=== PATIENT | female | born 1980 | race Caucasian/White ===

== ENCOUNTER 2024-07-22 11:07 | Emergency (ER) | payer MEDICAID ==
[~2024-07-22] VITALS: Ht 160 cm; Wt 86.1 kg
--- NOTE | 2024-07-22 11:28 | ED.PDOC ---
General HPI Comments 43 y.o female with PMHx of asthma, presents to the ED for a chief complaint of right sided flank pain associated with nausea and vomiting that started one day ago and has progressively worsened this morning. Patient reports pain worsens with deep inspiration and movement, has no alleviating factors and denies any recent trauma to pain site or falls. Pain is non radiating and rating a 6/10 on the pain scale. Patient took a Zofran 2 hours ago, states no relief. At this time, she denies any dysuria, hematuria, fever, chills, diarrhea. Patient mentions occasional use of tobacco via vaping, alcohol and marijuana. Chief Complaint: Flank Pain Time Seen by MD: 11:20 Reviewed notes: Nurses Notes, Medications, Allergies Allergies: Coded Allergies: NO KNOWN ALLERGIES (Unverified , 07/22/24) Home Meds Active Scripts Ondansetron Odt 4MG Tab (ZOFRAN PO) 4 Mg Tb, 4 MG PO TID PRN, #30 TAB prn nausea/vomiting ODT TAB-DISSOLVE IN MOUTH, THEN SWALLOW Prov:MARYCARMEN QUIROS MD 07/22/24 Methocarbamol (Methocarbamol) 500 Mg Tab, 1000 MG PO Q8HP PRN, #30 TAB prn muscle spasm Prov:MARYCARMEN QUIROS MD 07/22/24 Ibuprofen Micronized (Ibuprofen) 800 Mg Tab, 800 MG PO Q8HP PRN, #30 TAB prn pain, take with food Prov:MARYCARMEN QUIROS MD 07/22/24 Information Source: Patient Mode of Arrival: Ambulatory Severity: Moderate Timing: Days (1) Duration: Since onset Onset: Spontaneous Symptoms: None History of: None Location: (R) Flank Modifying factors: None associated signs and symptoms: Nausea, Vomiting Past Medical History PAST MEDICAL HISTORY: Asthma Surgical History: (3), 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 GENERAL History LMP 2 weeks ago Family History Family History: Reviewed,noncontributory to illness Social History Smoker: Cigarettes Alcohol: Occasionally Drugs: Marijuana Lives In: Home Constitutional: denies: chills, diaphoresis, fatigue, fever, malaise, sweats, weakness, others EENTM: denies: blurred vision, double vision, ear bleeding, ear discharge, ear drainage, ear pain, ear ringing, eye pain, eye redness, hearing loss, mouth pain, mouth swelling, nasal discharge, nose bleeding, nose congestion, nose pain, photophobia, tearing, throat pain, throat swelling, voice changes, others Respiratory: denies: cough, hemoptysis, orthopnea, SOB at rest, shortness of breath, SOB with excertion, stridor, wheezing, others Cardiovascular: denies: chest pain, dizzy spells, diaphoresis, Dyspnea on exertion, edema, irregular heart beat, left arm pain, lightheadedness, palpitations, PND, syncope, others Gastrointestinal: reports: nausea, vomiting; denies: abdomen distended, abdominal pain, blood streaked bowels, constipated, diarrhea, dysphagia, difficulty swallowing, hematemesis, melena, poor appetite, poor fluid intake, rectal bleeding, rectal pain, others Genitourinary: reports: flank pain; denies: abnormal vagina bleeding, burning, dyspareunia, dysuria, frequency, hematuria, incontinence, pain, , vagina discharge, urgency, others Neurological: denies: dizziness, fainting, headache, left sided numbness, left sided weakness, numbness, paresthesia, pre-existing deficit, right sided numbness, right sided weakness, seizure, speech problems, tingling, tremors, weakness, others Musculoskeletal: denies: back pain, gout, joint pain, joint swelling, muscle pain, muscle stiffness, neck pain, others Integumetry: denies: bruises, change in color, change in hair/nails, dryness, laceration, lesions, lumps, rash, wounds, others Allergic/Immunocompromised: denies: Difficulty Healing, Frequent Infections, Hives, Itching, others Hematologic/Lymphatic: denies: anemia, blood clots, easy bleeding, easy bruising, swollen glands, others Psychiatric: denies: anxiety, bipolar disorder, depression, hopeless, panic disorder, schizophrenia, sleepless, suicidal, others All Other Systems: Reviewed and Negative Physical Exam General Appearance: Mild Distress, Obese HEENT: Other (Pupils and face symmetric. Moist mucous membranes.) Neck: Full Range of Motion, Normal Inspection Respiratory: Lungs Clear, No Accessory Muscle Use, No Respiratory Distress, Normal Breath Sounds Cardiovascular: No Edema, No JVD, Regular Rate/Rhythm Breast Exam: Deferred Gastrointestinal: Non Tender, Soft Genitalia: Deferred Pelvic: Deferred Rectal: Deferred Extremities: Normal inspection, Normal range of motion, No pedal edema Musculoskeletal : Extremity Location: Back (Right mid back and upper flank soft tissue/muscle tenderness) Apperance: Normal Neurologic: Alert (Oriented x4), Normal Affect, Normal Mood, Other (Ambulatory) Cerebellar Function: NOT DONE Reflexes: NOT DONE Skin: Dry, Normal Color, Warm Lymphatic: NOT DONE Was a procedure done? Was a procedure done?: No Differential Diagnosis Kidney stone (Female): Bowel obstruction, Cholelithiasis, Musculoskeletal pain, Renal failure, Strain Urinary Problem (Female): Impaction, Pyelonephritis, Urolithiasis, UTI Other Differential Diagnosis Viral syndrome, among others X-Ray, Labs, Meds, VS Vital Signs Date Time Temp Pulse Resp B/P (MAP) Pulse Ox O2 Delivery O2 Flow Rate FiO2 07/22/24 15:00 98.3 67 16 146/84 (104) 98 98.3 07/22/24 12:49 83 17 97 Room Air* 0 21 07/22/24 11:28 98.8 95 16 169/86 (113) 94 98.8 Lab Test 07/22/24 13:12 07/22/24 11:30 Range/Units White Blood Count 5.8 4.4-10.8 10^3/uL Red Blood Count 4.34 4.0-5.20 10^6/uL Hemoglobin 13.6 12.2-16.2 g/dL Hematocrit 39.5 36.0-46.0 % Mean Corpuscular Volume 91.0 80.0-100.0 fL Mean Corpuscular Hemoglobin 31.3 28.0-32.0 pg Mean Corpuscular Hemoglobin Concent 34.3 32.0-36.0 g/dL Red Cell Distribution Width 13.4 11.8-14.3 % Platelet Count 142 140-450 10^3/uL Mean Platelet Volume 8.1 6.9-10.8 fL Neutrophils (%) (Auto) 71.6 37.0-80.0 % Lymphocytes (%) (Auto) 21.3 10.0-50.0 % Monocytes (%) (Auto) 6.6 0.0-12.0 % Eosinophils (%) (Auto) 0.1 0.0-7.0 % Basophils (%) (Auto) 0.4 0.0-2.0 % Neutrophils # (Auto) 4.2 1.6-8.6 10 ^3/uL Lymphocytes # (Auto) 1.2 0.4-5.4 10 ^3/uL Monocytes # (Auto) 0.4 0-1.3 10 ^3/uL Eosinophils # (Auto) 0 0-0.8 10 ^3/uL Basophils # (Auto) 0 0-0.2 10 ^3/uL Nucleated Red Blood Cells 0.0 % Sodium Level 140 136-145 mmol/L Potassium Level 4.2 3.5-5.1 mmol/L Chloride Level 105 98-107 mmol/L Carbon Dioxide Level 27 20-31 mmol/L Anion Gap 8 5-15 Blood Urea Nitrogen 8 L 9-23 mg/dL Creatinine 0.74 0.550-1.02 mg/dL Glomerular Filtration Rate Calc 102 >90 mL/min BUN/Creatinine Ratio 10.8 10.0-20.0 Serum Glucose 115 H 74-106 mg/dL Calcium Level 9.6 8.7-10.4 mg/dL Total Bilirubin 0.6 0.2-1.0 mg/dL Aspartate Amino Transferase (AST) 59 H 13-40 U/L Alanine Aminotransferase (ALT) 74 H 7-40 U/L Alkaline Phosphatase 118 H 46-116 U/L Total Protein 7.0 5.7-8.2 g/dL Albumin 4.2 3.2-4.8 g/dL Urine Color Light-yellow Yellow Urine Clarity Clear Clear Urine pH 7.0 5.0-9.0 Urine Specific [place] 1.010 1.001-1.035 Urine Protein Negative Negative Urine Ketones Negative Negative Urine Blood Negative Negative /uL Urine Nitrite Negative Negative Urine Bilirubin Negative Negative Urine Urobilinogen Normal Negative mg/dL Urine Leukocyte Esterase Negative Negative /uL Urine RBC <1 0 - 4 /hpf Urine Microscopic WBC 2 0-5 /HPF Urine Squamous Epithelial Cells Few <5 /hpf Urine Bacteria Few H None Seen /hpf Urine Glucose Normal Normal mg/dL Current Medications Medications (Trade) Dose Ordered Sig/Elizabeth Route Start Time Stop Time Status Last Admin Sodium Chloride 1,000 ml @ 1,000 mls/hr Q1H ONCE IV 07/22/24 11:30 07/22/24 12:29 DC 07/22/24 12:49 Ondansetron HCl (Zofran) 4 mg ONCE ONCE IV 07/22/24 11:30 07/22/24 11:31 DC 07/22/24 12:49 Ketorolac Tromethamine (Toradol Injection) 30 mg ONCE ONCE IV 07/22/24 11:30 07/22/24 11:31 DC 07/22/24 12:50 PROCEDURE(s): ABPL - CT AB PEL WO CON-NO ORAL OR IV REASON: R flank/mid back pain ORDER NUMBER(s): [id number], ACCESSION NUMBER(s): [id number] CLINICAL INFORMATION: Right flank and mid back pain. TECHNIQUE: Axial CT images of the abdomen and pelvis were obtained without IV contrast. Coronal and sagittal reformatted images were obtained, reviewed, and stored. Evaluation of the parenchymal organs is limited without IV contrast. Evaluation of the bowel and mesentery is limited without oral contrast. All CT scans at this medical facility are performed using dose modulation techniques as appropriate to a performed exam including the following: Automated exposure control was utilized; adjustment of the MA and/or KV according to patient size; and use of iterative reconstruction technique. CTDIvol = 18.59 mGy DLP = 1062.12 mGy-cm COMPARISON: None FINDINGS: Lung bases: Lung bases are clear. Liver: Nodular contour of the liver with relative enlargement of the left hepatic lobe, suggesting cirrhosis in the appropriate clinical setting. Biliary: No calcified gallstones or biliary ductal dilatation. Spleen: Unremarkable. Pancreas: Grossly unremarkable in its noncontrast enhanced appearance. Adrenal glands: Unremarkable. No mass. Kidneys: No hydronephrosis. No renal or ureteral calculi. Aorta/Vascular: No aneurysm or significant calcification. Retroperitoneum: No mass or lymphadenopathy. Bowel/mesentery: No small bowel obstruction. No free air or free fluid. Appendix is visualized and appears unremarkable. Pelvic organs: Uterus is anteverted. Likely scarring along the ventral aspect of the uterine fundus extending adjacent to the ventral pelvic body wall. Small 8 mm nodular focus of increased density adjacent to the endometrial canal at the level of the lower body of the uterus. Bladder: Unremarkable. No mass. Abdominal wall: Mild diastasis of the rectus abdominis muscles. Small fat containing umbilical hernia. Bones: No acute fracture or suspicious intraosseous lesion. IMPRESSION: 1. Cirrhotic liver morphology. 2. No hydronephrosis. No renal or ureteral calculi. 3. Small nodular focus of increased density adjacent to the endometrial canal is nonspecific. Correlate with clinical findings. If clinically indicated, pelvic ultrasound could be obtained. 4. Additional nonacute findings as detailed above. X-Ray, Labs, Meds, VS Comment 43-year-old female with a history of asthma complaining of right upper flank/mid back pain Vitals remarkable for BP 169/86, oxygen saturation 94% on room air Exam remarkable for right upper posterior flank/mid back tenderness to palpation No abdominal tenderness to palpation Rhythm strip independently interpreted by me: Sinus rhythm, rate 95, no ectopy. CT abdomen and pelvis: IMPRESSION: 1. Cirrhotic liver morphology. 2. No hydronephrosis. No renal or ureteral calculi. 3. Small nodular focus of increased density adjacent to the endometrial canal is nonspecific. Correlate with clinical findings. If clinically indicated, pelvic ultrasound could be obtained. 4. Additional nonacute findings as detailed above. CBC unremarkable, CMP remarkable for AST 59, ALT 74, alkaline phos 118 UA unremarkable Patient treated with the following in the ED: 1 L 0.9 normal saline IV bolus, Toradol 30 mg IV, Zofran 4 mg IV On re-evaluation, patient stated pain had improved. Vitals were stable. Abdominal exam was benign. Hospitalization was considered, however patient had rapid improvement of symptoms with treatment in the ED, and I no longer feel hospitalization is necessary. I am not concerned for respiratory etiology of pain, as lung bases appear clear on CT, and initially low oxygen saturation has resolved with pain control. Liver does appear abnormal in CT, however patient has no abdominal tenderness. Perhaps patient's symptoms are musculoskeletal or neuropathic and etiology. Rx ibuprofen, Robaxin, Zofran Time of 1ST Reevaluation: 12:00 Reevaluation 1ST: Unchanged Patient Education/Counseling: Diagnosis, Treatment, Prognosis Family Education/Counseling: No Family Present Departure 1 Departure Time of Disposition: 12:44 Impression: Primary Impression: Flank pain, acute Additional Impression: Nausea and vomiting Qualified Codes: R11.2 - Nausea with vomiting, unspecified Disposition: HOME / SELF CARE / HOMELESS Condition: Stable Additional Instructions: Your CT scan was unremarkable for any finding that would explain your symptoms, however your liver did appear enlarged. I have enclosed the report below. Your blood tests showed slightly abnormal liver function tests. This is not likely an acute finding, is unlikely to be the reason for your pain, and only requires follow-up with your primary physician. I have prescribed medication for pain and nausea. Follow-up with your primary doctor in 1-2 days. PROCEDURE(s): ABPL - CT AB PEL WO CON-NO ORAL OR IV REASON: R flank/mid back pain ORDER NUMBER(s): [id number], ACCESSION NUMBER(s): [id number] CLINICAL INFORMATION: Right flank and mid back pain. TECHNIQUE: Axial CT images of the abdomen and pelvis were obtained without IV contrast. Coronal and sagittal reformatted images were obtained, reviewed, and stored. Evaluation of the parenchymal organs is limited without IV contrast. Evaluation of the bowel and mesentery is limited without oral contrast. All CT scans at this medical facility are performed using dose modulation techniques as appropriate to a performed exam including the following: Automated exposure control was utilized; adjustment of the MA and/or KV according to patient size; and use of iterative reconstruction technique. CTDIvol = 18.59 mGy DLP = 1062.12 mGy-cm COMPARISON: None FINDINGS: Lung bases: Lung bases are clear. Liver: Nodular contour of the liver with relative enlargement of the left hepatic lobe, suggesting cirrhosis in the appropriate clinical setting. Biliary: No calcified gallstones or biliary ductal dilatation. Spleen: Unremarkable. Pancreas: Grossly unremarkable in its noncontrast enhanced appearance. Adrenal glands: Unremarkable. No mass. Kidneys: No hydronephrosis. No renal or ureteral calculi. Aorta/Vascular: No aneurysm or significant calcification. Retroperitoneum: No mass or lymphadenopathy. Bowel/mesentery: No small bowel obstruction. No free air or free fluid. Appendix is visualized and appears unremarkable. Pelvic organs: Uterus is anteverted. Likely scarring along the ventral aspect of the uterine fundus extending adjacent to the ventral pelvic body wall. Small 8 mm nodular focus of increased density adjacent to the endometrial canal at the level of the lower body of the uterus. Bladder: Unremarkable. No mass. Abdominal wall: Mild diastasis of the rectus abdominis muscles. Small fat containing umbilical hernia. Bones: No acute fracture or suspicious intraosseous lesion. IMPRESSION: 1. Cirrhotic liver morphology. 2. No hydronephrosis. No renal or ureteral calculi. 3. Small nodular focus of increased density adjacent to the endometrial canal is nonspecific. Correlate with clinical findings. If clinically indicated, pelvic ultrasound could be obtained. 4. Additional nonacute findings as detailed above. e-Prescriptions Ondansetron Odt 4MG Tab (ZOFRAN PO) 4 Mg Tb 4 MG PO TID PRN, #30 TAB prn nausea/vomiting ODT TAB-DISSOLVE IN MOUTH, THEN SWALLOW Prov: MARYCARMEN QUIROS MD 07/22/24 Methocarbamol (Methocarbamol) 500 Mg Tab 1000 MG PO Q8HP PRN, #30 TAB prn muscle spasm Prov: MARYCARMEN QUIROS MD 07/22/24 Ibuprofen Micronized (Ibuprofen) 800 Mg Tab 800 MG PO Q8HP PRN, #30 TAB prn pain, take with food Prov: MARYCARMEN QUIROS MD 07/22/24 Discharged With: Self Critical Care Note Critical Care Time?: No Stability Stability form required: No Heart Score Heart Score: Heart Score Response (Comments) Value History N/A 0 EKG N/A 0 Age N/A 0 Risk Factors N/A 0 Troponin N/A 0 Total 0 I personally scribed for MARYCARMEN QUIROS MD ([facility]) on 07/22/24 at 11:28. Electronically submitted by Amita Roberts ([facility]). I personally scribed for MARYCARMEN QUIROS MD) on 07/22/24 at 11:38. Electronically submitted by Amita Roberts ([facility]). MARYCARMEN QUIROS MD July 22, 2024 11:28
[2024-07-22 11:47] LABS: Urine Bacteria FEW /hpf (None Seen); Urine Blood Negative /uL (Negative); Urine Clarity Clear (Clear); Urine Color Light-Yellow (Yellow); Urine Protein, UAD Negative (Negative); Urine Squamous Epithelial Cell FEW /hpf (<5); Urine Urobilinogen Normal (Negative); Urine WBC 2 /HPF (0-5)
--- NOTE | 2024-07-22 12:14 | DVH ---
CLINICAL INFORMATION: Right flank and mid back pain. TECHNIQUE: Axial CT images of the abdomen and pelvis were obtained without IV contrast. Coronal and s agittal reformatted images were obtained, reviewed, and stored. Evaluation of the parenchymal organs is limited without IV contrast. Evaluation of the bowel and mesentery is limited without oral contras t. All CT scans at this medical facility are performed using dose modulation techniques as appropriat e to a performed exam including the following: Automated exposure control was utilized; adjustment of the MA and/or KV according to patient size; and use of iterative reconstruction technique. CTDIvol = 18.59 mGy DLP = 1062.12 mGy-cm COMPARISON: None FINDINGS: Lung bases: Lung bases are clear. Liver: Nodular contour of the liver with relative enlargement of the left hepatic lobe, suggesting ci rrhosis in the appropriate clinical setting. Biliary: No calcified gallstones or biliary ductal dilatation. Spleen: Unremarkable. Pancreas: Grossly unremarkable in its noncontrast enhanced appearance. Adrenal glands: Unremarkable. No mass. Kidneys: No hydronephrosis. No renal or ureteral calculi. Aorta/Vascular: No aneurysm or significant calcification. Retroperitoneum: No mass or lymphadenopathy. Bowel/mesentery: No small bowel obstruction. No free air or free fluid. Appendix is visualized and ap pears unremarkable. Pelvic organs: Uterus is anteverted. Likely scarring along the ventral aspect of the uterine fundus e xtending adjacent to the ventral pelvic body wall. Small 8 mm nodular focus of increased density celena cent to the endometrial canal at the level of the lower body of the uterus. Bladder: Unremarkable. No mass. Abdominal wall: Mild diastasis of the rectus abdominis muscles. Small fat containing umbilical herni a. Bones: No acute fracture or suspicious intraosseous lesion. IMPRESSION: 1. Cirrhotic liver morphology. 2. No hydronephrosis. No renal or ureteral calculi. 3. Small nodular focus of increased density adjacent to the endometrial canal is nonspecific. Correl ate with clinical findings. If clinically indicated, pelvic ultrasound could be obtained. 4. Additional nonacute findings as detailed above.
[2024-07-22] MEDS ORDERED: ZOFR4T PO (12:47)
[2024-07-22] MEDS ORDERED: METH-1181 PO (12:47)
[2024-07-22] MEDS ORDERED: IBUP-1455 PO (12:47)
[2024-07-22 12:49] VITALS: PULSE 83; RESP 17; O2SAT 97
[2024-07-22] MEDS: ONDANSETRON HCL 4 MG/2 ML VIAL IV ONE (12:49)
[2024-07-22] MEDS: SODIUM CHLORIDE 0.9% 1,000 ML IV ONE (12:49)
[2024-07-22] MEDS: KETOROLAC TROMETH 30 MG/ML 1ML VIAL IV ONE (12:50)
[2024-07-22 13:22] LABS: Basophils # (auto) 0 10 ^3/uL (0-0.2); Basophils % (auto) 0.4 % (0.0-2.0); Eosinophils # (auto) 0 10 ^3/uL (0-0.8); Eosinophils % (auto) 0.1 % (0.0-7.0); Hematocrit 39.5 % (36.0-46.0); Hemoglobin 13.6 g/dL (12.2-16.2); Lymphocytes # (auto) 1.2 10 ^3/uL (0.4-5.4); Lymphocytes % (auto) 21.3 % (10.0-50.0); Mean Corpuscular Hemoglobin 31.3 pg (28.0-32.0); Mean Corpuscular Hgb Conc. 34.3 g/dL (32.0-36.0); Monocytes # (auto) 0.4 10 ^3/uL (0-1.3); Monocytes % (auto) 6.6 % (0.0-12.0); Neutrophils # (auto) 4.2 10 ^3/uL (1.6-8.6); Neutrophils % (auto) 71.6 % (37.0-80.0); Platelet Count (auto) 142 10^3/uL (140-450); Red Blood Cells 4.34 10^6/uL (4.0-5.20); Red Cell Distribution Width 13.4 % (11.8-14.3); White Blood Cell 5.8 10^3/uL (4.4-10.8)
[2024-07-22 13:40] LABS: Albumin 4.2 g/dL (3.2-4.8); Anion Gap 8 (5-15); BUN/Creatinine Ratio 10.8 (10.0-20.0); Calcium 9.6 mg/dL (8.7-10.4); Carbon Dioxide 27 mmol/L (20-31); Chloride 105 mmol/L (98-107); Potassium 4.2 mmol/L (3.5-5.1); Sodium 140 mmol/L (136-145)
[2024-07-22 13:41] LABS: Alanine Aminotransferase 74 U/L (7-40); Alkaline Phosphatase 118 U/L (46-116); Aspartate Aminotransferase 59 U/L (13-40); Bilirubin, Total 0.6 mg/dL (0.2-1.0); Blood Urea Nitrogen 8 mg/dL (9-23); Glucose 115 mg/dL (74-106)
[2024-07-22 15:00] VITALS: BP 146/84; PULSE 67; RESP 16; TEMP 98.3; O2SAT 98
== END 2024-07-22 15:00 | disposition home or self-care (01) ==
LOC: ER 11:07
DX: R10.9 Unspecified abdominal pain (principal); R11.2 Nausea with vomiting, unspecified; F17.210 Nicotine dependence, cigarettes, uncomplicated; F12.90 Cannabis use, unspecified, uncomplicated; J45.909 Unspecified asthma, uncomplicated; Z98.51 Tubal ligation status; Z98.890 Other specified postprocedural states; Z79.899 Other long term (current) drug therapy
CPT/HCPCS: 36415; 74176; 80053; 81001; 85025; 96361; 96374; 96375; 99285; J1885; J2405; J7030